=== PATIENT | male | born 1985 | race African-American/Black ===

== ENCOUNTER 2019-01-01 18:42 | Emergency (ER) | payer SELFPAY ==
[2019-01-01 18:57] VITALS: BP 146/92
[2019-01-01] MEDS ORDERED: AZITHROMYCIN 250 MG TABLET PO ONE (19:38)
[2019-01-01] MEDS ORDERED: LIDOCAINE 1% INJ-PF (10 MG/ML) 30 ML SDV IM ONE (19:38)
[2019-01-01] MEDS ORDERED: CEFTRIAXONE INJ 250 MG VIAL IM ONE (19:38)
--- NOTE | 2019-01-01 19:38 | ER Document Report ---
HPI - HPI Time Seen by Provider: 01/01/19 19:32 Pain Level: 2 Notes: Patient is an otherwise healthy 33-year-old male presenting to the emergency department with request for STD treatment. Patient reports his partner tested positive for gonorrhea last week. Patient reports he has not been treated himself. Patient denies any penile discharge or dysuria. Past Medical History - General Information source: Patient - Social History Smoking Status: Never Smoker Frequency of alcohol use: None Lives with: Alone Family History: Reviewed & Not Pertinent Patient has suicidal ideation: No Patient has homicidal ideation: No - Medical History Medical History: Negative Surgical Hx: Negative - Immunizations Immunizations up to date: Yes Vertical Provider Document - CONSTITUTIONAL Notes: PHYSICAL EXAMINATION: GENERAL: Well-appearing, well-nourished and in no acute distress. HEAD: Atraumatic, normocephalic. EYES: Pupils equal round extraocular movements intact, conjunctiva are normal. ENT: Nares patent NECK: Normal range of motion LUNGS: No respiratory distress Musculoskeletal: Normal range of motion NEUROLOGICAL: Normal speech, normal gait. PSYCH: Normal mood, normal affect. SKIN: Warm, Dry, normal turgor, no rashes or lesions noted. - INFECTION CONTROL TRAVEL OUTSIDE OF THE [place] IN LAST 30 DAYS: No Course - Re-evaluation Re-evalutation: Patient treated prophylactically for both chlamydia and gonorrhea. Tests are continued. Test pending. Patient will be discharged home in stable condition with plans to follow-up with the health department in 1 week. Patient verbalizes understanding and agreement with this plan. Patient understands need to refrain from unprotected sexual intercourse for 7 to 10 days. - Vital Signs Vital signs: Temp Pulse Resp BP Pulse Ox 98.1 F 107 H 16 146/92 H 96 01/01/19 18:56 01/01/19 18:56 01/01/19 18:56 01/01/19 18:56 01/01/19 18:56 Discharge - Discharge Clinical Impression: STD exposure Condition: Stable Disposition: HOME, SELF-CARE Additional Instructions: You were seen and treated in the emergency department today for a an STD exposure. Although your testing is still pending we went ahead and treated you for presumptive gonorrhea and possible chlamydia. This is very standard to treat patients for both of these while the results are pending. Please follow- up with health department in 1 week for recheck, refrain from any unprotected sexual intercourse for the next 7 to 10 days.
[2019-01-01 20:33] LABS: APPEARANCE,URINE SLIGHTLY-CLOUDY; BILIRUBIN,URINE SMALL (NEGATIVE); COLOR,URINE YELLOW; GLUCOSE, URINE NEGATIVE (NEGATIVE); KETONES,URINE NEGATIVE (NEGATIVE); LEUKOCYTE ESTERASE,URINE NEGATIVE (NEGATIVE); NITRITE,URINE NEGATIVE (NEGATIVE); PROTEIN,URINE 30 mg/dL (NEGATIVE); URINE SPECIFIC GRAVITY 1.033
[2019-01-01 21:42] LABS: CHLAM PCR NOT DETECTED (NOT DETECT)
== END 2019-01-01 20:29 | disposition home or self-care (01) ==
LOC: EDBD → ER 18:42
DX: Z20.2 Contact with and (suspected) exposure to infections with a predominantly sexual mode of transmission (principal)
CPT/HCPCS: 81001; 87491; 87591; J3490; J0696; 96374; 96375; 99283

== ENCOUNTER 2019-03-31 21:08 | Emergency (ER) | payer SELFPAY ==
[2019-03-31] MEDS ORDERED: IBUPROFEN 800 MG TABLET PO ONE (21:22)
--- NOTE | 2019-03-31 21:24 | ER Document Report ---
ED Medical Screen (RME) - General Chief Complaint: Swelling Stated Complaint: RIGHT EYE SWELLING Time Seen by Provider: 03/31/19 21:19 Mode of Arrival: Ambulatory Information source: Patient Notes: 34-year-old male with no past medical history presents emergency department with abscess swelling redness to his right lower leg and an abscess to the right side of his face next to his right eyebrow. Right eye is swollen. Patient reports symptoms started with pustule he did squeeze it get large amount of discharge from both the right leg and the area on his face. Denies history of MRSA. Patient reports no pain. Patient heart rate elevated with low-grade temp of 100.6. Respiratory rate even and unlabored. Denies history of cardiac disease diabetes. I have greeted and performed a rapid initial assessment of this patient. A comprehensive ED assessment and evaluation of the patient, analysis of test results and completion of the medical decision making process will be conducted by additional ED providers. Dictation of this chart was performed using voice recognition software; therefore, there may be some unintended grammatical errors. TRAVEL OUTSIDE OF THE [place] IN LAST 30 DAYS: No - Related Data Allergies/Adverse Reactions: No Known Allergies Allergy (Unverified 01/01/19 19:26) Past Medical History - Immunizations Immunizations up to date: Yes Physical Exam - Vital signs Vitals: Temp Pulse Resp BP Pulse Ox 100.6 F H 130 H 20 150/89 H 97 03/31/19 21:13 03/31/19 21:13 03/31/19 21:13 03/31/19 21:13 03/31/19 21:13 Course - Vital Signs Vital signs: Temp Pulse Resp BP Pulse Ox 100.6 F H 130 H 20 150/89 H 97 03/31/19 21:13 03/31/19 21:13 03/31/19 21:13 03/31/19 21:13 03/31/19 21:13
[2019-03-31 21:58] LABS: ABSOLUTE BASOPHILS # (AUTO) 0.1 10^3/uL (0.0-0.2); ABSOLUTE EOSINOPHILS # (AUTO) 0.2 10^3/uL (0.0-0.6); ABSOLUTE MONOCYTES (AUTO) 1.3 10^3/uL (0.1-1.4); BASOPHILS % (AUTO) 0.5 % (0-2); EOSINOPHILS % (AUTO) 1.4 % (0-6); HEMATOCRIT 43.4 % (37.9-51.0); HEMOGLOBIN 14.3 g/dL (13.5-17.0); MEAN CORPUSCULAR HEMOGLOBIN 29.5 pg (27.0-33.4); MEAN CORPUSCULAR HGB CONC 32.9 g/dL (32.0-36.0); MEAN CORPUSCULAR VOLUME 90 fl (80-97); MONOCYTES % (AUTO) 10.7 % (3-13); PLATELET COUNT 278 10^3/uL (150-450); RED BLOOD COUNT 4.83 10^6/uL (4.35-5.55); RED CELL DISTRIBUTION WIDTH 12.7 % (11.5-14.0); SEGMENTED NEUTROPHILS % (AUTO) 71.4 % (42-78); TOTAL CELLS COUNTED % (AUTO) 100 %; WHITE BLOOD COUNT 12.6 10^3/uL (4.0-10.5)
[2019-03-31 22:20] LABS: A TYPE INFLUENZA AG NEGATIVE (NEGATIVE); ALBUMIN 4.8 g/dL (3.5-5.0); ALKALINE PHOSPHATASE 77 U/L (38-126); ANION GAP 12 (5-19); ASPARTATE AMINO TRANSFERASE 31 U/L (17-59); B INFLUENZA AG NEGATIVE (NEGATIVE); BILIRUBIN,DIRECT 0.1 mg/dL (0.0-0.4); BILIRUBIN,TOTAL 0.6 mg/dL (0.2-1.3); BLOOD UREA NITROGEN 14 mg/dL (7-20); CALCIUM 9.9 mg/dL (8.4-10.2); CARBON DIOXIDE 26 mmol/L (22-30); CHLORIDE 101 mmol/L (98-107); GLUCOSE 118 mg/dL (75-110); POTASSIUM 4.2 mmol/L (3.6-5.0); TOTAL PROTEIN 8.4 g/dL (6.3-8.2)
[2019-04-01] MEDS ORDERED: CLINDAMYCIN 900 MG/D5W RTU 900 MG/50 ML RTUPB IV ONE (02:54)
[2019-04-01] MEDS ORDERED: MORPHINE SULFATE 10 MG/ML INJ IV ONE (02:54)
--- NOTE | 2019-04-01 03:01 | ER Document Report ---
ED General - General Chief Complaint: Skin Problem Stated Complaint: RIGHT EYE SWELLING Time Seen by Provider: 03/31/19 21:19 Mode of Arrival: Ambulatory Notes: 34-year-old male with no past medical history presents with skin infection to right lower leg and around right eye. Patient states he first noticed the infec tion on his right lower leg on and states he squeezed it and pus came out. Patient states it is painful. Patient also states skin infection around his right eye started off near his eyebrow and first noticed it yesterday. This is progressed to swelling and redness around his eye. Patient states this is also painful. Patient denies any history of diabetes, IV drug use, HIV. TRAVEL OUTSIDE OF THE [place] IN LAST 30 DAYS: No - Related Data Allergies/Adverse Reactions: No Known Allergies Allergy (Unverified 01/01/19 19:26) Past Medical History - General Information source: Patient - Social History Smoking Status: Current Every Day Smoker Frequency of alcohol use: Social Family History: Reviewed & Not Pertinent Patient has suicidal ideation: No Patient has homicidal ideation: No - Immunizations Immunizations up to date: Yes Review of Systems - Review of Systems Notes: Constitutional: Negative for fever. HENT: Negative for sore throat. Eyes: Negative for visual changes. Cardiovascular: Negative for chest pain. Respiratory: Negative for shortness of breath. Gastrointestinal: Negative for abdominal pain, vomiting or diarrhea. Genitourinary: Negative for dysuria. Musculoskeletal: Negative for back pain. Skin: Positive for skin infection. Negative for rash. Neurological: Negative for headaches, weakness or numbness. 10 point ROS negative except as marked above and in HPI. Physical Exam - Vital signs Vitals: Temp Pulse Resp BP Pulse Ox 100.6 F H 130 H 20 150/89 H 97 03/31/19 21:13 03/31/19 21:13 03/31/19 21:13 03/31/19 21:13 03/31/19 21:13 - Notes Notes: GENERAL: Well-appearing, well-nourished and in no acute distress. HEAD: Atraumatic, normocephalic. EYES: Pupils equal round and reactive to light, extraocular movements intact, sclera anicteric, conjunctiva are normal. NECK: Normal range of motion, supple without lymphadenopathy or JVD. EXTREMITIES: Normal range of motion, no pitting or edema. No clubbing or cyanosis. NEUROLOGICAL: Cranial nerves II through XII grossly intact. Normal speech, normal gait. PSYCH: Normal mood, normal affect. SKIN: Right lower leg shows approximately 4 cm area of erythema with mild drainage. Area is hard without fluctuance. Right eyebrow has an area of erythema/swelling with mild drainage, patient has swelling to right upper cheek with mild erythema. Course - Re-evaluation Re-evalutation: 04/01/19 34-year-old male with no past significant medical history presents with what appears to be cellulitis to his right lower leg and around his right eye. Patient had a fever of 100.6 in ER. And was mildly tachycardic. Patient's lab work shows a slightly elevated leukocytosis. Patient given IV clindamycin with p.o. clindamycin to go home with. Patient to return in 2 days to either urgent care or ER for reassessment. Strict return precautions given. Patient also given referral to PCP. Patient voices understanding and agrees with plan of care. - Vital Signs Vital signs: Temp Pulse Resp BP Pulse Ox 99.4 F 116 H 18 155/84 H 95 03/31/19 23:18 03/31/19 23:18 03/31/19 23:18 03/31/19 23:18 03/31/19 23:18 - Laboratory Result Diagrams: 03/31/19 21:34 03/31/19 21:34 Laboratory results interpreted by me: 03/31/19 03/31/19 21:34 21:34 WBC 12.6 H Absolute Neuts (auto) 9.0 H Glucose 118 H Total Protein 8.4 H Discharge - Discharge Clinical Impression: Cellulitis of right lower leg, Cellulitis of face Condition: Stable Disposition: HOME, SELF-CARE Instructions: Cellulitis ([facility]) Additional Instructions: You received IV antibiotics today. Please start antibiotics tomorrow and finish all doses even if you feel better unless changed by medical professional. Please return to ER or urgent care in 48 hours for recheck. Please return to ER for any worsening symptoms, including worsening swelling, worsening redness, pus drainage, increased pain, fever, vomiting, or any other symptoms that are concerning to you. Prescriptions: Clindamycin HCl 300 mg PO TID #30 capsule Referrals: AGUSTINA MUHAMMAD MD [[facility] STAFF] - Follow up in 3-5 days
[2019-04-01] MEDS ORDERED: HYDROCODONE/ACETAMINOPHEN 5-325 MG (6 TAB/ER DISP) PO PRN (04:32)
[2019-04-01 05:40] VITALS: BP 137/58
== END 2019-04-01 05:41 | disposition home or self-care (01) ==
LOC: ER 21:08
DX: L03.115 Cellulitis of right lower limb (principal); L03.211 Cellulitis of face; F17.200 Nicotine dependence, unspecified, uncomplicated; R50.9 Fever, unspecified
CPT/HCPCS: 99283; 96375; 96365; 36415; 85025; 80053; 87804; J3490; J2270